=== PATIENT | female | born 1960 | race Caucasian/White ===

== ENCOUNTER 2018-03-17 14:20 | Inpatient (IN) | payer OTHER ==
[~2018-03-17] VITALS: Ht 149.9 cm; Wt 77.1 kg
[2018-03-17] MEDS ORDERED: FEE PK DOSING 1 MIN EA MC ONE (14:22)
--- NOTE | 2018-03-17 14:22 | NUR ---
AAOX3, BIB FRIEND C/O CHEST PAIN AND WORSENING CELLULITIS TO LEFT LOWER LEG X 1 MONTH. RR IS EVEN AND UNLABORED WITH NAD NOTED. SKIN IS WARM AND DRY. PLACED ON THE MONITOR. AWAITING MD FOR EVAL.
--- NOTE | 2018-03-17 14:48 | NUR ---
DR KINGSLEY AT BEDSIDE FOR EVAL.
[2018-03-17] MEDS ORDERED: VANCOMYCIN 1 GM in IV D5W 250 ML IV ONE (15:00)
[2018-03-17] MEDS ORDERED: IV NS 0.9% 1,000 ML BAG IV ONE (15:00)
[2018-03-17] MEDS ORDERED: CEFTRIAXONE 1 G in IV D5W 50 ML IV ONE (15:00)
[2018-03-17] MEDS ORDERED: KETOROLAC TROMETHAMINE INJ 30 MG/ML VIAL IV ONE (15:00)
[2018-03-17] MEDS ORDERED: KETOROLAC TROMETHAMINE 15 MG/ML VIAL ONE (15:02)
--- NOTE | 2018-03-17 15:08 | NUR ---
RADIOLOGY AT BEDSIDE FOR CHEST XRAY.
[2018-03-17 15:10] LABS: BASOPHILS # (AUTO) 0.1 /CMM (0.0-0.2); BASOPHILS % (AUTO) 1.5 % (0.0-2.0); EOSINOPHILS % (AUTO) 1.1 % (0.0-6.0); HEMATOCRIT 43 % (33-45); LYMPHOCYTES # (AUTO) 2.6 /CMM (0.8-4.8); LYMPHOCYTES % (AUTO) 35.9 % (20.0-44.0); MEAN CORPUSCULAR HEMOGLOBIN 28 PG (26.0-33.0); MEAN CORPUSCULAR HGB CONC 33 g/dl (31.0-36.0); MEAN CORPUSCULAR VOLUME 86 fL (82-100); MONOCYTES # (AUTO) 0.6 /CMM (0.1-1.30); MONOCYTES % (AUTO) 7.7 % (2.0-12.0); NEUTROPHILS # (AUTO) 3.8 /CMM (1.8-8.9); NEUTROPHILS % (AUTO) 53.8 % (43.0-81.0); PLATELET COUNT (AUTO) 314 /CMM (150-450); RED BLOOD CELL COUNT(AUTO) 5.02 MIL/uL (4.0-5.2); WHITE BLOOD COUNT (AUTO) 7.2 K/uL (4.3-11.0)
[2018-03-17 15:23] LABS: INR 0.88 (0.85-1.15)
[2018-03-17 15:27] LABS: ALANINE AMINOTRANSFERASE 26 U/L (12-78); ALBUMIN 3.5 g/dL (3.4-5.0); ALKALINE PHOSPHATASE 75 U/L (46-116); ASPARTATE AMINOTRANSFERASE 16 U/L (15-37); BILIRUBIN,DIRECT 0.1 mg/dL (0.0-0.2); BILIRUBIN,TOTAL 0.2 mg/dL (0.2-1.0); CARBON DIOXIDE 28 mmol/L (21-32); CHLORIDE 108 mmol/L (98-107); CREATININE 0.7 mg/dL (0.6-1.3); GLUCOSE 118 mg/dL (74-106); LIPASE 201 U/L (73-393); POTASSIUM 3.8 mmol/L (3.5-5.1); SODIUM SERUM 140 mmol/L (136-145); TOTAL PROTEIN, SERUM 6.9 g/dL (6.4-8.2); UREA NITROGEN, BLOOD 12 mg/dL (7-18)
[2018-03-17 15:29] LABS: TROPONIN I < 0.017 ng/mL (0.00-0.056)
[2018-03-17] MEDS ORDERED: ASPI-1169 PO (15:45)
--- NOTE | 2018-03-17 15:54 | NUR ---
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
--- NOTE | 2018-03-17 15:57 | NUR ---
CALLED NURSE SUP FOR MED/SURG BED
[2018-03-17] MEDS ORDERED: IV NS 0.9% 1,000 ML IV PRN (16:14)
[2018-03-17] MEDS ORDERED: MAG HYDROX/AL HYDROX/SIMETH 30 ML UDC PO PRN (16:30)
[2018-03-17] MEDS ORDERED: MORPHINE SULFATE INJ 2 MG/ML DISP.SYRIN IV PRN (16:30)
[2018-03-17] MEDS ORDERED: Z GUARD REMEDY 2 OZ OINT TP PRN (16:30)
[2018-03-17] MEDS ORDERED: ACETAMINOPHEN 325 MG TABLET PO PRN (16:30)
[2018-03-17] MEDS ORDERED: ONDANSETRON HCL/PF 4 MG/2 ML VIAL IVP PRN (16:30)
[2018-03-17] MEDS ORDERED: MAGNESIUM HYDROXIDE 30 ML UDC PO PRN (16:30)
[2018-03-17] MEDS ORDERED: HYDROCODONE/APAP 5/325MG 1 EACH TABLET PO PRN (16:30)
[2018-03-17 16:40] LABS: APPEARANCE,URINE Clear (CLEAR); BILIRUBIN,URINE Negative (NEGATIVE); BLOOD, URINE Trace-intact Ery/uL (NEGATIVE); COLOR,URINE Light yellow (YELLOW); KETONES,URINE Negative (NEGATIVE); LEUKOCYTE ESTERASE ,URINE Negative (NEGATIVE); NITRITE, URINE Negative (NEGATIVE); PROTEIN,URINE Negative (NEGATIVE); UGLUCOSE Negative (NEGATIVE); UROBILINOGEN,URINE 0.2 EU/dL (0.2)
[2018-03-17 17:03] LABS: BACTERIA,URINE None seen /HPF (None Seen); SQUAMOUS EPITHELIAL CELL,UR Few /HPF (None Seen); WBC,URINE 0-2 /HPF (0-3)
--- NOTE | 2018-03-17 17:05 | NUR ---
REPORT GIVEN TO SAL WILKS. PT AWAITING TRANSFER TO FLOOR.
--- NOTE | 2018-03-17 17:30 | NUR ---
RN MS NOTES RECEIVED PT FROM E.R. STAFF VIA SIMA, PT IS AWAKE, ALERT AND ORIENTED, ASSISTED TO BED, MADE COMFORTABLE, NO COMPLAINT OF PAIN AT THIS TIME, RESPIRATIONS NORMAL, ROOM SET UP ORIENTATION PROVIDED TO PT, PLAN OF CARE DISCUSSED WITH PT AND SON AURA, VERBALIZED UNDERSTANDING, BELONGINGS CHECKED, KEPT COMFORTABLE.
[2018-03-17] MEDS: ENOXAPARIN SODIUM 40 MG/0.4 ML DISP.SYRIN SQ SCH (18:00)
[2018-03-17 18:11] VITALS: BP 149/81
[2018-03-17] MEDS: CEFEPIME 2 GM in IV D5W 100 ML IV SCH (18:21)
--- NOTE | 2018-03-17 18:36 | NUR ---
RN MS NOTES PT IN BED, RESTING, NO COMPLAINT AT THIS TIME, IV FLUIDS INFUSING WELL, SALINE LOCK AT LEFT HAND INTACT AND PATENT, NO S/S OF INFILTRATION NOTED, IV ATB GIVEN ORDERED, HISTORY PROVIDED BY PT AND SON AURA, CALL LIGHT PLACED WITHIN REACH, NEEDS ATTENDED.
--- NOTE | 2018-03-17 18:37 | NUR ---
RN MS NOTES PT REFUSED LOVENOX, EXPLAINED THE PURPOSE OF THE MEDICATION TO PT, WELL SIDE EFFECTS, STILL REFUSED.
--- NOTE | 2018-03-17 19:15 | NUR ---
RN INITIAL NOTES Patient received in bed, watching TV. Alert, oriented x 4. Breathing even and unlabored. Not in any distress. No complaints of discomfort as of this time. Peripheral IV infusing at 75mL/hr. Safety ,easures in place. Call gonzalez within reach. Bed in low, locked position. Patient stable as endorsed by the AM shift RN. Will monitor accordingly
[2018-03-17 20:00] VITALS: BP 153/91
--- NOTE | 2018-03-17 20:00 | NUR ---
RN NOTES Patient complaining of headache, Tylenol given as ordered
--- NOTE | 2018-03-17 20:30 | NUR ---
RN NOTES As per COMMISSIONER OF RELOCATION SERVICES Mena, "trace redness of the cellulitis of the lower extremity with a sharpie for monitoring". Carried out order
--- NOTE | 2018-03-17 21:00 | NUR ---
RN NOTES Patient requested to be taken off the IV so she can go to the bathroom freely. Patient is eating and drinking well.
[2018-03-17 22:00] VITALS: BP 143/82
[2018-03-18] MEDS: VANCOMYCIN 1 GM in IV D5W 250 ML IV SCH ×3 (03:26→17:05)
--- NOTE | 2018-03-18 03:26 | NUR ---
RN NOTES Patient's IV infusion restarted
[2018-03-18] MEDS: CEFEPIME 2 GM in IV D5W 100 ML IV SCH ×2 (05:21→18:21)
--- NOTE | 2018-03-18 06:34 | NUR ---
RN CLOSING NOTES Patient still resting in bed. Remains stable. Alert, oriented x 4. Not in any distress. Ambulates to the bathroom. No complaints as of this time. All needs attended to. All due medications given as ordered. Call gonzalez within reach. Bed in low, locked position. Will endorse PARVIZ to oncoming RN
[2018-03-18 07:44] LABS: CALCIUM, SERUM 8.4 mg/dL (8.5-10.1); CREATININE 0.7 mg/dL (0.6-1.3); POTASSIUM 3.9 mmol/L (3.5-5.1)
[2018-03-18 08:00] VITALS: BP 148/78
--- NOTE | 2018-03-18 08:20 | NUR ---
MS RN NOTES PATIENT IS SITTING UP IN THE BED, A/O X4. LEFT LOWER LEG CELLULITIS, DECREASED SWELLING PER REPORT. PATIENT APPEARS COMFORTABLE, DENIES PAIN. IVF INFUSING. CALL LIGHT WITHIN REACH. WILL CONT TO MONITOR.
[2018-03-18] MEDS: ASPIRIN 81 MG TAB.CHEW PO SCH (08:25)
[2018-03-18] MEDS: PANTOPRAZOLE 40 MG TABLET.DR PO SCH (08:25)
[2018-03-18 10:02] LABS: BASOPHILS % (AUTO) 0.7 % (0.0-2.0); EOSINOPHILS % (AUTO) 2.6 % (0.0-6.0); HEMATOCRIT 42 % (33-45); HEMOGLOBIN 13.3 g/dL (11.5-14.8); LYMPHOCYTES % (AUTO) 35.7 % (20.0-44.0); MEAN CORPUSCULAR HEMOGLOBIN 29 PG (26.0-33.0); MEAN CORPUSCULAR HGB CONC 32 g/dl (31.0-36.0); MEAN CORPUSCULAR VOLUME 89 fL (82-100); MONOCYTES # (AUTO) 0.4 /CMM (0.1-1.30); MONOCYTES % (AUTO) 7.2 % (2.0-12.0); NEUTROPHILS # (AUTO) 3.1 /CMM (1.8-8.9); NEUTROPHILS % (AUTO) 53.8 % (43.0-81.0); PLATELET COUNT (AUTO) 274 /CMM (150-450); RDW COEFFICIENT OF VARIATION 13.6 (11.5-15.0); RED BLOOD CELL COUNT(AUTO) 4.65 MIL/uL (4.0-5.2); WHITE BLOOD COUNT (AUTO) 5.7 K/uL (4.3-11.0)
--- NOTE | 2018-03-18 15:30 | NUR ---
PATIENT WANTS TO GO OUTSIDE THE HOSP TO WALK, PER PATIENT SHE WANT TO SMOKE AND GET SOME FRESH AIR. EXPLAINED TO PATIENT, SMOKING WHILE IN THE HOSP NEEDS MD TO BE INFORMED AND TO SIGN CONSENT FORM. PATIENT STATED SHE WILL NOT SMOKE BUT STILL WOULD LIKE TO GO OUTSIDE HOSP TO WALK, ASSISTANT EDITOR ACCOMPANY PATIENT VIA WHEELCHAIR.
--- NOTE | 2018-03-18 15:50 | NUR ---
PATIENT REFUSING IVF PER PATIENT, PAIN WHEN FLUSHING SALINE AND IT MAKES HER GO TO THE BATHROOM A LOT. EDUCATION, IMPORTANCE OF IVF EXPLAINED TO PATIENT, OFFERED TO RE START NEW IV PERIPHERAL ACCESS LINE TO PATIENT BUT STILL REFUSED, NOTIFIED YASMANI MARIEE, IVF WAS DISCONTINUED.
[2018-03-18 16:05] VITALS: BP 157/75
--- NOTE | 2018-03-18 16:07 | NUR ---
PATIENT COMPLAINTS OF PAIN ON LEFT HAND IVC WHEN FLUSHED WITH NORMAL SALINE, NO NOTED BLOOD RETURNED WHEN FLUSHED WITH NORMAL SALINE. PATIENT REFUSING RE INSERTION OF NEW IVC LINE, PER PATIENT SHE DOES NOT WANT TO BE STICK WITH NEEDLE AGAIN, REVIEWED IMPORTANCE OF PATENT AND INTACT IVC ACCESS AND THE BENEFITS OF ADMINISTERING IV ANTIBIOTIC TO A GOOD PATENT IVC LINE, PATIENT STILL REFUSED AND STATED SHE IS UNHAPPY WITH THE CARE AND WANTS TO GO HOME, RE EDUCATED PATIENT WITH ANOTHER RN, EDMAR SPEAKING.
--- NOTE | 2018-03-18 17:11 | NUR ---
PATIENT IS UPSET, PER PATIENT HER ANTIBIOTIC IS AT 4:00 PM. EXPLAINED TO PATIENT, ADMINISTERING ANY ANTIBIOTIC OR MEDICATION VIA IV NEEDS A GOOD IV CATHETER LINE TO RECEIVE THE MEDICATION, BUT SHE REFUSED DESPITE OF EDUCATION PROVIDED AT THE TIME OF ADMINISTRATION. PATIENT AGREED TO RE INSERT NEW LINE AND IV VANCOMYCIN WAS ADMINISTERED NOT ON TIME.
--- NOTE | 2018-03-18 18:14 | NUR ---
MS RN NOTES VS REMAINS STABLE, AMBULATES WITH PT TODAY. CONTINUED ON IV ANTIBIOTIC PER MD, AFEBRILE DURING THE SHIFT. LEFT LEG PAIN IS CONTROLLED, OFFERED PAIN MEDICATION BUT PATIENT DECLINED, PER PATIENT NO PAIN IN HER LEG WHEN SHES NOT MOVING IT. LEFT LOWER LEG STILL WITH REDNESS AND SWELLING BUT DECREASED FROM PREVIOUS REPORT. MAINTAINED SAFETY. WILL ENDORSE TO ONCOMING RN.
[2018-03-18] MEDS: LACTOBACILLUS RHAMNOSUS GG 1 EACH CAP.SPRINK PO SCH (18:22)
--- NOTE | 2018-03-18 19:05 | NUR ---
MS/RN NOTES RECEIVED PT. SITTING UP IN BED. PT. IS AWAKE, ALERT AND ORIENTED X4. BREATHING EVEN AND UNLABORED ON ROOM AIR. NO SOB, RESPIRATORY DISTRESS OR COMPLAINTS OF PAIN NOTED AT THIS TIME. PT. WITH RIGHT HAND 22 GAUGE IV SALINE LOCK PRESENT, PATENT AND INTACT. PT. WITH FAMILY MEMBER PRESENT AT BEDSIDE. BED LOCKED AND IN LOWEST POSITION, SIDE RAILS UP X2, CALL LIGHT WITHIN REACH, WILL CONTINUE TO MONITOR.
[2018-03-18 20:00] VITALS: BP 161/91
[2018-03-18] MEDS: ENOXAPARIN SODIUM 40 MG/0.4 ML DISP.SYRIN SQ SCH (21:00)
[2018-03-19] MEDS: CEFEPIME 2 GM in IV D5W 100 ML IV SCH (06:31)
--- NOTE | 2018-03-19 06:58 | NUR ---
MS/RN NOTES PT. IS LYING IN BED AWAKE, ALERT AND ORIENTED X4. BREATHING EVEN AND UNLABORED ON ROOM AIR. NO SOB, RESPIRATORY DISTRESS OR COMPLAINTS OF PAIN NOTED AT THIS TIME. PT. WITH RIGHT HAND 22 GAUGE IV SALINE LOCK PRESENT, PATENT AND INTACT. ALL PT. NEEDS MET. BED LOCKED AND IN LOWEST POSITION, SIDE RAILS UP X2, CALL LIGHT WITHIN REACH, WILL ENDORSE TO DAYSHIFT NURSE FOR CONTINUITY OF CARE.
[2018-03-19 07:04] LABS: CALCIUM, SERUM 8.6 mg/dL (8.5-10.1); CREATININE 0.9 mg/dL (0.6-1.3); POTASSIUM 3.8 mmol/L (3.5-5.1)
--- NOTE | 2018-03-19 07:15 | NUR ---
RN OPENING NOTES RECEIVED PT. IN BED AWAKE, A &OX4. BREATHING UNLABORED, AND EVENLY ON ROOM AIR. NO S/S OF ACUTE DISTRESS. PT. DENIES PAIN. BED IS IN LOWEST, AND LOCKED POSITION. 2 SIDE RAILS UP, AND INSTRUCTED PT. TO USE CALL LIGHT FOR ASSISTANCE. ALL NEEDS MET.
[2018-03-19 07:17] LABS: BASOPHILS % (AUTO) 0.8 % (0.0-2.0); EOSINOPHILS % (AUTO) 2.3 % (0.0-6.0); HEMATOCRIT 40 % (33-45); HEMOGLOBIN 13.3 g/dL (11.5-14.8); LYMPHOCYTES # (AUTO) 2.4 /CMM (0.8-4.8); LYMPHOCYTES % (AUTO) 41.3 % (20.0-44.0); MEAN CORPUSCULAR HEMOGLOBIN 29 PG (26.0-33.0); MEAN CORPUSCULAR HGB CONC 33 g/dl (31.0-36.0); MEAN CORPUSCULAR VOLUME 88 fL (82-100); MONOCYTES # (AUTO) 0.4 /CMM (0.1-1.30); MONOCYTES % (AUTO) 7.7 % (2.0-12.0); NEUTROPHILS # (AUTO) 2.8 /CMM (1.8-8.9); NEUTROPHILS % (AUTO) 47.9 % (43.0-81.0); PLATELET COUNT (AUTO) 269 /CMM (150-450); RDW COEFFICIENT OF VARIATION 13.6 (11.5-15.0); RED BLOOD CELL COUNT(AUTO) 4.53 MIL/uL (4.0-5.2); WHITE BLOOD COUNT (AUTO) 5.8 K/uL (4.3-11.0)
--- NOTE | 2018-03-19 07:40 | NUR ---
WOUND CARE CONSULT WOUND CARE RECEIVED CONSULT FOR CELLULITIS. WOUND CARE WILL DEFER CONSULT AND ALL TREATMENT PLANS TO SURGICAL TEAM WHO ARE CURRENTLY FOLLOWING. PATIENT WITH CHINTAN AT 23. WILL SEE PRN.
[2018-03-19 08:00] VITALS: BP 146/90
[2018-03-19] MEDS: ASPIRIN 81 MG TAB.CHEW PO SCH (08:10)
[2018-03-19] MEDS: PANTOPRAZOLE 40 MG TABLET.DR PO SCH (08:11)
[2018-03-19] MEDS: LACTOBACILLUS RHAMNOSUS GG 1 EACH CAP.SPRINK PO SCH (08:13)
[2018-03-19] MEDS ORDERED: LISINOPRIL (5MG) 5 MG TABLET PO SCH (09:00)
[2018-03-19] MEDS ORDERED: SULF1TAB48 PO (09:50)
[2018-03-19 10:47] VITALS: BP 148/79
--- NOTE | 2018-03-19 12:20 | NUR ---
SUBSTANCE ADDICTION COORDINATOR PT. LEFT IN STABLE CONDITION. PT. WENT TO ROOM 205 TO VISIT A RELATIVE. DISCHARGE INSTRUCTIONS WERE PROVIDED WITH EDUCATION AND PT. VERBALIZED UNDERSTANDING. BELONGINGS LIST WAS CHECKED AND SIGNED. PRESCRIPTION WAS GIVEN TO PT. WITH EDUCATION AND PT. VERBALIZED UNDERSTANDING. ALL QUESTIONS ANSWERED. PT. LEFT WITH DISCHARGE PACKET IN HAND.
== END 2018-03-19 12:15 | disposition home or self-care (01) | DRG 383 ==
LOC: ER 14:21 → MED 16:55
PROVIDERS: ADMIT Registered Nurse; ATTEND Registered Nurse
DX: L03.116 Cellulitis of left lower limb (principal); I10 Essential (primary) hypertension; E66.9 Obesity, unspecified; Z68.34 Body mass index [BMI] 34.0-34.9, adult; F41.9 Anxiety disorder, unspecified
CPT/HCPCS: 36415; 71045-TC; 73590-TC; 80048-TC; 80076-TC; 81000-TC; 83605-TC; 83690-TC; 84484-TC; 85025-TC; 85730-TC; 87081-TC; 93971-TC; A4606; J0692; J0696; J1650; J1885; J2270; J3370; J7030; J7060; Z7610

== ENCOUNTER 2024-06-11 14:20 | Emergency (ER) | payer MEDICAID, OTHER ==
[~2024-06-11] VITALS: Ht 157.5 cm; Wt 77.1 kg
[~2024-06-11 14:20] MED LIST: ASPI-1169 PO; SULF1TAB48 PO
[2024-06-11] MEDS ORDERED: diphenhydrAMINE HCL 50 MG/ML VIAL ONE (15:14)
[2024-06-11] MEDS ORDERED: METOCLOPRAMIDE HCL 10 MG/2 ML VIAL ONE (15:14)
[2024-06-11] MEDS ORDERED: LORAZEPAM INJ 2 MG/ML VIAL ONE (15:14)
[2024-06-11 15:22] LABS: BASOPHILS % (AUTO) 0.5 % (0.0-2.0); EOSINOPHILS # (AUTO) 0.1 K/uL (0.0-0.7); EOSINOPHILS % (AUTO) 1.5 % (0.0-6.0); HEMATOCRIT 42 % (33-45); HEMOGLOBIN 14.2 g/dL (11.5-14.8); LYMPHOCYTES # (AUTO) 2.6 K/uL (0.8-4.8); MEAN CORPUSCULAR HEMOGLOBIN 29 PG (26.0-33.0); MEAN CORPUSCULAR HGB CONC 34 g/dl (31.0-36.0); MEAN CORPUSCULAR VOLUME 87 fL (82-100); MONOCYTES # (AUTO) 0.5 K/uL (0.1-1.30); MONOCYTES % (AUTO) 7.6 % (2.0-12.0); NEUTROPHILS % (AUTO) 48.4 % (43.0-81.0); PLATELET COUNT (AUTO) 267 K/uL (150-450); RED BLOOD CELL COUNT(AUTO) 4.85 MIL/uL (4.0-5.2); RED CELL DISTRIBUTION WIDTH 13.5 % (11.5-15.0); WHITE BLOOD COUNT (AUTO) 6.2 K/uL (4.3-11.0)
[2024-06-11 15:32] LABS: CALCIUM, SERUM 9.5 mg/dL (8.5-10.1); CREATININE 0.7 mg/dL (0.6-1.3); MAGNESIUM 2.4 mg/dL (1.8-2.4); POTASSIUM 4.2 mmol/L (3.5-5.1)
[2024-06-11] MEDS: diphenhydrAMINE HCL 50 MG/ML VIAL IV ONE (15:34)
[2024-06-11] MEDS: METOCLOPRAMIDE HCL 10 MG/2 ML VIAL IV ONE (15:35)
[2024-06-11] MEDS: LORAZEPAM INJ 2 MG/ML VIAL IV ONE (15:36)
[2024-06-11] MEDS ORDERED: IOHEXOL-350 100 ML VIAL IV ONE (15:49)
[2024-06-11] MEDS ORDERED: IV NS 0.9% 250 ML IV ONE (15:50)
[2024-06-11] MEDS ORDERED: METO5TAB87 PO (16:57)
[2024-06-11] MEDS ORDERED: LORA-258 PO (16:57)
[2024-06-11 17:41] VITALS: BP 120/75; TEMP 98.3; O2SAT 98
== END 2024-06-11 17:43 | disposition home or self-care (01) ==
LOC: ER 14:30
DX: R42 Dizziness and giddiness (principal); R11.0 Nausea; M54.2 Cervicalgia; Z79.82 Long term (current) use of aspirin
CPT/HCPCS: 99285; 70498; 96374; 96375; 70496; 85025; 80048; 83735; 36415; J2060; J1200; J2765; J7050; Q9967